=== PATIENT | male | born 1975 | race Caucasian/White ===

== ENCOUNTER → 2024-04-16 | Day surgery (SDC) | payer OTHER ==
[~2024-04-16] MED LIST: ACETAMINOPHEN 100 ML IV ONE; Bacitracin Zinc/Neomycin/Pol 0.9 GM PACKET T ONE; Bupivacaine Hydrochloride/Ep2 30 ML VIAL ONE; CLONAZEPAM0.5 M2 PO; DEXMEDETOMIDINE HCL 200 MCG/2 ML VIAL IV ONE; Dexamethasone Sodium Phospha 20 MG/5 ML VIAL IV ONE; Gelatin Sponge 1 EACH SPON T ONE; Lactated Ringer's Solution 1,000 ML IV ONE; Lidocaine Hydrochloride 2% 10 ML AMP IM ONE; Midazolam Hydrochloride 2 MG/2 ML VIAL IV ONE; NEURONTIN300 MG PO; Ondansetron Hydrochloride 4 MG/2 ML VIAL IV ONE; PENICILLIN VK500 MG PO; PROPOFOL 200 MG/20 ML VIAL IV ONE; REMERON15 M2 PO; SEVOFLURANE 250 ML BOT INH ONE; Succinylcholine Chloride 200 MG/10 ML VIAL IV ONE; TYLE3UD PO; VITAMIN D3125 MC1 PO
[2024-04-16 08:44] VITALS: BP 124/79
[2024-04-16 11:03] VITALS: BP 102/72
[2024-04-16 11:18] VITALS: BP 112/78
[2024-04-16 11:33] VITALS: BP 106/70
[2024-04-16 11:48] VITALS: BP 109/74
[2024-04-16 12:03] VITALS: BP 116/75
== END | disposition home or self-care (01) ==
LOC: SDC 04-12 08:45
PROVIDERS: ATTEND Dentist General Practice
DX: K02.9 Dental caries, unspecified (principal); K05.5 Other periodontal diseases; F41.9 Anxiety disorder, unspecified; E05.90 Thyrotoxicosis, unspecified without thyrotoxic crisis or storm; F31.9 Bipolar disorder, unspecified; Z90.49 Acquired absence of other specified parts of digestive tract; Z96.641 Presence of right artificial hip joint; Z87.891 Personal history of nicotine dependence; Z98.890 Other specified postprocedural states; Z79.899 Other long term (current) drug therapy; Z88.5 Allergy status to narcotic agent; Z88.8 Allergy status to other drugs, medicaments and biological substances; Z82.49 Family history of ischemic heart disease and other diseases of the circulatory system